=== PATIENT | male | born 1970 | race Caucasian/White ===

== ENCOUNTER 2016-03-23 02:44 | Emergency (ER) | payer OTHER ==
[2016-03-23] MEDS ORDERED: ASPIRIN PO STA (03:03)
[2016-03-23] MEDS ORDERED: NITROGLYCERIN SL ONE (03:15)
[2016-03-23] MEDS ORDERED: NITROGLYCERIN TOP ONE (03:15)
[2016-03-23] MEDS ORDERED: ZOFRAN IV ONE (03:16)
[2016-03-23] MEDS ORDERED: HUMULIN R SUBQ ONE (03:16)
[2016-03-23] MEDS ORDERED: MORPHINE IV ONE (03:16)
--- NOTE | 2016-03-23 03:34 | PROVIDER DOCUMENTATION ---
HPI-Chest Pain - General Chief Complaint: Chest Pain Stated Complaint: DIZZY, CP Time Seen by Provider: 03/23/16 03:02 Source: patient, family (spouse) Allergies/Adverse Reactions: Patient Allergies Allergy/AdvReac Type Severity Reaction Status Date / Time No Known Allergies Allergy Verified 03/23/16 03:16 - History of Present Illness-CP Nature of Presenting Problem: pt works nights, got up at * PM yesterday and noticed that he was have lower left sided CP that wraps around to his back and is worse with coughs and deeps breaths. It is a 7/10. He has a chronic cough as he smoked 1 1/2 ppd, and lately his cough has been a bit deeper than usual. No SOB. No Nausea. He did have some sweats earlier. HE has been monitoring his glucose periodically at home and lately they have been much higher. Tonight at home it was 450 as he took a cinnamon supplement. he has been urinating more than usual and has been thristy and drinking more than usual. No abdominal pain Review of Systems - Adult - REVIEW OF SYSTEMS - ADULT Constitutional: denies: chills, fever Eyes: denies: discharge, blurred vision, double vision Ears, Nose, Mouth & Throat: denies: ear pain, sinus problem, throat pain Cardiovascular: reports: see HPI. denies: edema, orthopnea, palpitations Respiratory: reports: chronic cough, pleurisy. denies: excessive sputum production, shortness of breath, wheezing Gastrointestinal: denies: abdominal pain, diarrhea, nausea, vomiting Genitourinary: denies: dysuria, frequency, flank pain Musculoskeletal: denies: back pain Integumentary: denies: rash Neurological: denies: headache/migraines, numbness, paresthesia All Other Systems: Reviewed and Negative Past History - Adult - PAST MEDICAL HISTORY-ADULT Review of Records: reports: Old Records Reviewed, Nursing Assessment Review, Medications Reviewed, Social history reviewed & non-contributory. Major Childhood Illnesses: reports: denies history Cardiovascular: reports: denies history Respiratory: reports: denies history Gastrointestinal: reports: denies history Genitourinary: reports: denies history Musculoskeletal: reports: denies history Neurological: reports: denies history Endocrine/Immune: reports: Diabetes (borderline, not treated by medications) Other Conditions: reports: denies history - PRIOR SURGERIES/PROCEDURES Surgical/Procedure History: reports: reviewed, not pertinent, orthopedic ( extremity) - IMMUNIZATION STATUS Childhood Immunizations: See Nurse Assessment Flu Vaccine: See Nurse Assessment - FAMILY HISTORY Family History: reviewed, not pertinent Physical Exam-General - PHYSICAL EXAM-ADULT Initial Vital Signs Reviewed: Yes - CONSTITUTIONAL General Appearance: appears well, alert, no apparent distress - EYES Eyes: pink conjunctivae. negative: scleral icterus - HEAD, EARS, NOSE, MOUTH & THROAT HENMT: normocephalic/atraumatic - NECK Neck: non-tender, full range of motion, supple, normal inspection. negative: lymphadenopathy - RESPIRATORY Respiratory: lungs clear, normal breath sounds, no pleuratic chest pain, no respiratory distress, no accessory muscle use. negative: chest non-tender (pt very tender lower left ribs, reproduces pt's pain) - CARDIOVASCULAR Cardiovascular: regular rate, rhythm, no edema, no murmur - GASTROINTESTINAL (ABDOMEN) Abdominal Exam: normal bowel sounds, non tender, soft, no organomegaly, no pulsatile mass - MUSCULOSKELETAL Back Exam: normal inspection, no CVA tenderness, no vertebral tenderness Extremity: normal range of motion, non-tender, normal gait, normal inspection, no pedal edema, no calf tenderness - SKIN Integumentary: normal color, normal turgor, warm/dry - NEUROLOGIC Neurologic: grossly normal, no motor/sensory deficits - PSYCHIATRIC Psych/Mental Status: normal mood/affect, normal thought content, normal thought process, oriented x 3 Progress - PLAN OF CARE/RESULTS Progress/Plan/Lab Results: Laboratory Tests 03/23/16 03/23/16 03/23/16 02:56 03:12 03:12 WBC 9.75 RBC 5.09 Hgb 15.5 Hct 42.8 MCV 84.1 MCH 30.5 MCHC 36.2 RDW Std Deviation 12.4 Plt Count 272 MPV 10.9 H Immature Gran % (Auto) 0.2 Neut % (Auto) 59.1 Lymph % (Auto) 30.5 Loving % (Auto) 6.7 Eos % (Auto) 2.9 Baso % (Auto) 0.6 Immature Gran # (Auto) 0.02 Neut # (Auto) 5.77 Lymph # (Auto) 2.97 Loving # (Auto) 0.65 H Eos # (Auto) 0.28 Baso # (Auto) 0.06 PT INR PTT (Actin FS) D-Dimer Sodium 136 Potassium 4.1 Chloride 98 Carbon Dioxide 24 L Anion Gap 14 BUN 9 Creatinine 0.8 Estimated GFR/1.73 m2 > 60 BUN/Creatinine Ratio 11 Glucose 384 H POC Glucose 338 H D Calculated Osmolality 287 Calcium 9.5 Magnesium 1.7 Total Bilirubin 0.47 AST 11 ALT 28 Alkaline Phosphatase 164 H Creatine Kinase 79 Troponin T Ylg-A-Kwjwlodeufn Pept Total Protein 7.0 Albumin 4.1 Globulin 2.9 Albumin/Globulin Ratio 1.4 03/23/16 03/23/16 03/23/16 03:12 03:12 03:12 WBC RBC Hgb Hct MCV MCH MCHC RDW Std Deviation Plt Count MPV Immature Gran % (Auto) Neut % (Auto) Lymph % (Auto) Loving % (Auto) Eos % (Auto) Baso % (Auto) Immature Gran # (Auto) Neut # (Auto) Lymph # (Auto) Loving # (Auto) Eos # (Auto) Baso # (Auto) PT 10.9 INR 1.03 PTT (Actin FS) 27.3 D-Dimer 0.12 Sodium Potassium Chloride Carbon Dioxide Anion Gap BUN Creatinine Estimated GFR/1.73 m2 BUN/Creatinine Ratio Glucose POC Glucose Calculated Osmolality Calcium Magnesium Total Bilirubin AST ALT Alkaline Phosphatase Creatine Kinase Troponin T Tuv-Y-Skbrwtgkmdx Pept 21 Total Protein Albumin Globulin Albumin/Globulin Ratio 03/23/16 03:12 WBC RBC Hgb Hct MCV MCH MCHC RDW Std Deviation Plt Count MPV Immature Gran % (Auto) Neut % (Auto) Lymph % (Auto) Loving % (Auto) Eos % (Auto) Baso % (Auto) Immature Gran # (Auto) Neut # (Auto) Lymph # (Auto) Loving # (Auto) Eos # (Auto) Baso # (Auto) PT INR PTT (Actin FS) D-Dimer Sodium Potassium Chloride Carbon Dioxide Anion Gap BUN Creatinine Estimated GFR/1.73 m2 BUN/Creatinine Ratio Glucose POC Glucose Calculated Osmolality Calcium Magnesium Total Bilirubin AST ALT Alkaline Phosphatase Creatine Kinase Troponin T < 0.010 Ctv-T-Aoizgaznfsk Pept Total Protein Albumin Globulin Albumin/Globulin Ratio Orders Category Date Time Status Cardiac Monitoring DIRECTED Care 03/23/16 03:03 Active Saline Loc NOW Care 03/23/16 03:03 Active CHEST-2 VIEWS [RAD] Stat Exams 03/23/16 03:03 Taken CBC WITH ELECTRONIC DIFF [HEME] Stat Lab 03/23/16 03:12 Completed CK PROFILE [SP CHEM] Stat Lab 03/23/16 03:12 Completed COMPREHENSIVE METABOLIC PANEL [CHEM] Stat Lab 03/23/16 03:12 Completed D-DIMER [CHEM] Stat Lab 03/23/16 03:12 Completed MAGNESIUM [CHEM] Stat Lab 03/23/16 03:12 Completed PRO B-NATRIURETIC PEPTIDE Stat Lab 03/23/16 03:12 Completed PROTIME WITH INR [COAG] Stat Lab 03/23/16 03:12 Completed PTT [COAG] Stat Lab 03/23/16 03:12 Completed TROPONIN T Stat Lab 03/23/16 03:12 Completed Aspirin Med 03/23/16 03:03 Discontinued 325 mg PO STAT STA Insulin Human Regular [Humulin R] Med 03/23/16 03:16 Discontinued 10 unit SUBQ NOW ONE LISINOpril [Prinivil] Med 03/23/16 04:33 Discontinued 20 mg PO NOW ONE Metformin [Glucophage] Med 03/23/16 04:33 Discontinued 500 mg PO NOW ONE Morphine Med 03/23/16 03:16 Discontinued 4 mg IV NOW ONE Nitroglycerin Med 03/23/16 03:15 Discontinued 1 inch TOP NOW ONE Nitroglycerin Sl [Nitroglycerin] Med 03/23/16 03:15 Discontinued 0.4 mg SL NOW ONE Ondansetron [Zofran] Med 03/23/16 03:16 Discontinued 4 mg IV NOW ONE EKG [EKG] Stat Ther 03/23/16 02:48 Ordered Vital Signs Temp Pulse Resp BP Pulse Ox 03/23/16 04:39 61 19 146/95 93 L 03/23/16 03:30 69 18 169/108 95 03/23/16 02:53 98.3 F 77 18 177/107 98 No Known Allergies Allergy (Verified 03/23/16 03:16) Hydrocodone/Acetaminophen [Jordan 5-325 Tablet] 1 each PO Q4-6H PRN PRN #12 tablet 03/23/16 Lisinopril 20 mg PO DAILY #30 tablet 03/23/16 Metformin [Glucophage] 500 mg PO BID #60 tablet 03/23/16 Laboratory 03/23/16 03/23/16 03/23/16 03:12 03:12 03:12 WBC RBC Hgb Hct MCV MCH MCHC RDW Std Deviation Plt Count MPV Immature Gran % (Auto) Neut % (Auto) Lymph % (Auto) Loving % (Auto) Eos % (Auto) Baso % (Auto) Immature Gran # (Auto) Neut # (Auto) Lymph # (Auto) Loving # (Auto) Eos # (Auto) Baso # (Auto) PT 10.9 INR 1.03 PTT (Actin FS) 27.3 D-Dimer Sodium Potassium Chloride Carbon Dioxide Anion Gap BUN Creatinine Estimated GFR/1.73 m2 BUN/Creatinine Ratio Glucose POC Glucose Calculated Osmolality Calcium Magnesium Total Bilirubin AST ALT Alkaline Phosphatase Creatine Kinase Troponin T < 0.010 Hdd-G-Zsgfoaotfhf Pept 21 Total Protein Albumin Globulin Albumin/Globulin Ratio 03/23/16 03/23/16 03/23/16 03:12 03:12 03:12 WBC 9.75 RBC 5.09 Hgb 15.5 Hct 42.8 MCV 84.1 MCH 30.5 MCHC 36.2 RDW Std Deviation 12.4 Plt Count 272 MPV 10.9 H Immature Gran % (Auto) 0.2 Neut % (Auto) 59.1 Lymph % (Auto) 30.5 Loving % (Auto) 6.7 Eos % (Auto) 2.9 Baso % (Auto) 0.6 Immature Gran # (Auto) 0.02 Neut # (Auto) 5.77 Lymph # (Auto) 2.97 Loving # (Auto) 0.65 H Eos # (Auto) 0.28 Baso # (Auto) 0.06 PT INR PTT (Actin FS) D-Dimer 0.12 Sodium 136 Potassium 4.1 Chloride 98 Carbon Dioxide 24 L Anion Gap 14 BUN 9 Creatinine 0.8 Estimated GFR/1.73 m2 > 60 BUN/Creatinine Ratio 11 Glucose 384 H POC Glucose Calculated Osmolality 287 Calcium 9.5 Magnesium 1.7 Total Bilirubin 0.47 AST 11 ALT 28 Alkaline Phosphatase 164 H Creatine Kinase 79 Troponin T Gqa-V-Djuisxqxdht Pept Total Protein 7.0 Albumin 4.1 Globulin 2.9 Albumin/Globulin Ratio 1.4 03/23/16 02:56 WBC RBC Hgb Hct MCV MCH MCHC RDW Std Deviation Plt Count MPV Immature Gran % (Auto) Neut % (Auto) Lymph % (Auto) Loving % (Auto) Eos % (Auto) Baso % (Auto) Immature Gran # (Auto) Neut # (Auto) Lymph # (Auto) Loving # (Auto) Eos # (Auto) Baso # (Auto) PT INR PTT (Actin FS) D-Dimer Sodium Potassium Chloride Carbon Dioxide Anion Gap BUN Creatinine Estimated GFR/1.73 m2 BUN/Creatinine Ratio Glucose POC Glucose 338 H D Calculated Osmolality Calcium Magnesium Total Bilirubin AST ALT Alkaline Phosphatase Creatine Kinase Troponin T Yne-R-Orxnhjsvhrq Pept Total Protein Albumin Globulin Albumin/Globulin Ratio - REASSESSMENT Reassessment #1 Time Reassessed: 04:55 (disc at length the need to quit smoking) Status: improving - EKG 1 Time of EKG reading by physician:: 02:50 EKG Interpretation (*Must complete 3 of following elements*): Normal Rate: 82 Rhythm: sinus [place]: normal QRS: normal [place] Interval: normal ST Wave: normal - XRAY 1 XRAY Study: Chest Impression: Normal Departure - Departure Time of Disposition Order: 04:55 DIAGNOSIS: Chest wall pain Hypertension Qualifiers: Hypertension type: essential hypertension Qualified Code(s): I10 - Essential ( primary) hypertension Type 2 diabetes mellitus Qualifiers: Diabetes mellitus complication status: without complication Diabetes mellitus 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 These instructions are being provided to you so you can have an understanding of how to care for yourself upon discharge. Upon discharge from the Emergency Department, you are responsible for making arrangements for follow-up care by a physician of your choice. Take all prescribed medications as directed. Return to the Emergency Department immediately for any new or worsening symptoms. You may call the Physician Referral phone number at [phone] to obtain a list of Physicians who are taking new patients. Prescriptions: Metformin [Glucophage] 500 mg PO BID #60 tablet Lisinopril 20 mg PO DAILY #30 tablet Hydrocodone/Acetaminophen [Jordan 5-325 Tablet] 1 each PO Q4-6H PRN PRN #12 tablet PRN Reason: Pain
[2016-03-23 03:38] LABS: MANUAL DIFF NEEDED? NO
[2016-03-23 03:44] LABS: BASO% 0.6 % (0.0-0.8); EOS# 0.28 X1000 (0.0-0.7); EOS% 2.9 % (0.0-10.0); HEMATOCRIT 42.8 % (42.0-52.0); HEMOGLOBIN 15.5 g/dL (14.0-18.0); IMM GRAN# 0.02 X1000 (0.0-0.04); IMM GRAN% 0.2 % (0.0-0.5); LYMPH# 2.97 X1000 (1.2-3.4); LYMPH% 30.5 % (20.5-51.1); MCH 30.5 PG (27-31); MCHC 36.2 g/dL (33-37); MCV 84.1 FL (81-99); MONO# 0.65 X1000 (0.11-0.59); MONO% 6.7 % (1.7-9.3); MPV 10.9 FL (7.4-10.4); NEUT% 59.1 % (42.2-75.2); PLT 272 X1000 (130-400); RBC 5.09 XMIL (4.7-6.1)
[2016-03-23 04:05] LABS: INR 1.03; PROTIME 10.9 Seconds (9.2-11.7); PTT 27.3 Seconds (22.0-36.0)
[2016-03-23 04:08] LABS: AGAP 14; ALBUMIN 4.1 g/dL (3.5-5.0); ALKALINE PHOSPHATASE 164 U/L (32-122); BUN 9 mg/dL (8-22); CALCIUM 9.5 mg/dL (8.8-10.2); CHLORIDE 98 mmol/L (98-107); CK PROFILE 79 U/L (24-204); COSMO 287; GOT 11 U/L (10-34); GPT 28 U/L (10-44); MAGNESIUM 1.7 mg/dL (1.5-2.7); POTASSIUM 4.1 mmol/L (3.5-5.1); SODIUM 136 mmol/L (136-145); TCO2 24 mmol/L (25-35); TOTAL BILIRUBIN 0.47 mg/dL (0.20-1.00)
[2016-03-23] MEDS ORDERED: GLUCOPHAGE PO ONE (04:33)
[2016-03-23] MEDS ORDERED: PRINIVIL PO ONE (04:33)
[2016-03-23 04:40] VITALS: BP 146/95
--- NOTE | 2016-03-23 06:19 | EKG Report ---
Test Performed on : 03/23/2016 02:50:23 AM Test Reason : dg Blood Pressure : / mmHG Vent. Rate : 082 BPM Atrial Rate : 082 BPM P-R Int : 132 ms QRS Dur : 096 ms QT Int : 360 ms P-R-T Axes : 041 -08 036 degrees QTc Int : 420 ms Normal sinus rhythm. Normal ECG When compared with ECG of 10-SEP-2014 19:22, No significant change was found Unconfirmed Result
--- NOTE | 2016-03-23 07:49 | Diag Imaging Result Document ---
PROCEDURE NAME: CHEST-2 VIEWS - 03/23/2016 SEATED AP AND LATERAL RADIOGRAPH OF THE CHEST: COMPARISON: 09/10/2014. FINDINGS: The lungs are grossly clear. There is no discrete pleural fluid collection or evidence of pneumothorax. The cardiomediastinal silhouette and upper airway are grossly unremarkable. IMPRESSION: No evidence of acute chest pathology.
== END 2016-03-23 05:00 | disposition home or self-care (01) ==
LOC: ED 02:44
DX: R07.89 Other chest pain (principal); I10 Essential (primary) hypertension; E11.9 Type 2 diabetes mellitus without complications; R42 Dizziness and giddiness; M54.9 Dorsalgia, unspecified; R05 Cough; R07.1 Chest pain on breathing; R61 Generalized hyperhidrosis; R09.1 Pleurisy
CPT/HCPCS: 71020; 80053; 82550; 82948; 83735; 83880; 84484; 85025; 85379; 85610; 85730; 93005; 96372; J2270; J2405